=== PATIENT | male | born 1950 | race Caucasian/White ===

== ENCOUNTER 2018-03-16 12:02 | Outpatient (CLI) | payer MEDICARE, BC ==
--- NOTE | 2018-03-16 15:42 | MRI ---
MRI LEFT KNEE WITHOUT CONTRAST: INDICATIONS: Left lateral knee pain. COMPARISON: Left knee radiographs dated 11/08/2016. FINDINGS: The severe osteoarthrosis involving the left knee is stable. Intraarticular bodies and suprapatellar pouch are again seen. The largest is seen within the suprapatellar pouch on image 11 with its great est dimension measuring 2.8 cm. An additional is seen measuring 1.9 cm. There is one seen within th e medial gutter, measuring 1.2 cm. There is edema involving the medial femoral condyle and medial tibial plateau. There are prominent o steophytes affecting all major compartments. The ACL, PCL, MCL, and LCLC are intact. There is a complete radial tear involving the posterior root of the medial meniscus. There is degene rative fraying of the body and anterior horn of the medial meniscus. There is a horizontally oriente d tear involving the body and the posterior horn of the lateral meniscus. There is a small suspected radial component involving the anterior junction of the lateral meniscus. The extensor mechanism is intact. IMPRESSION: 1. Stable severe osteoarthrosis of the left knee with intraarticular bodies. 2. Medial and lateral meniscal tears. 3. Subchondral edema involving the medial femoral condyle and the medial tibial plateau, likely rela toni to areas of full thickness chondral thinning and reactive subchondral bone marrow edema. POS: [facility]
== END 2018-03-16 12:03 | disposition home or self-care (01) ==
LOC: SCSMRI 12:02
PROVIDERS: ATTEND Family Medicine
DX: S83.282A Other tear of lateral meniscus, current injury, left knee, initial encounter (principal); S83.242A Other tear of medial meniscus, current injury, left knee, initial encounter; M17.12 Unilateral primary osteoarthritis, left knee; R50.9 Fever, unspecified

== ENCOUNTER 2022-04-30 15:26 | Emergency (ER) | payer MEDICARE, BC ==
[2022-04-30 17:15] LABS: #Eosinphils 0.1 thou/uL (0.0-0.7); #Lymphocytes 2.1 thou/uL (1.20-3.40); #Monocytes 0.6 thou/uL (0.11-0.59); #Neutrophils 3.2 thou/uL (1.40-6.50); %Basophils 0.8 % (0.0-1.0); %Lymphocytes 34.2 % (21.0-51.0); Hemoglobin 15.2 g/dL (14.0-18.0); Mean Corpuscular HGB CONC 33.4 g/dL (32.0-36.0); Mean Corpuscular Hemoglobin 31.2 pg (27.0-31.0); Mean Corpuscular Volume 93.7 fL (78.0-98.0); Mean Platelet Volume 7.6 fL (7.4-10.4); Platelet Count 206 thou/uL (130-400); RBC Distribution Width 12.9 % (11.5-14.5); Red Blood Cell (RBC) Count 4.88 mill/uL (4.70-6.10); White Blood Cell (WBC) Count 6.1 thou/uL (4.8-10.8)
[2022-04-30 17:38] LABS: ALT (SGPT) 28 U/L (8-55); AST (SGOT) 27 U/L (5-34); Albumin 4.2 g/dL (3.4-4.8); Alkaline Phosphatase 50 U/L (40-110); Anion Gap 12 mmol/L (10-20); BUN (Urea Nitrogen) 19 mg/dL (8.4-25.7); Bilirubin, Total 1.2 mg/dL (0.2-1.2); Calc. Creatinine Clearance 0 mL/min (70-130); Calcium 9.7 mg/dL (7.8-10.44); Carbon Dioxide 26 mmol/L (23-31); Chloride 109 mmol/L (98-107); Estimated GFR 86; Globulin 2.6 g/dL (2.4-3.5); Glucose 88 mg/dL (83-110); Potassium 4.7 mmol/L (3.5-5.1); Protein, Total 6.8 g/dL (5.8-8.1); Sodium 142 mmol/L (136-145)
[2022-04-30 19:31] LABS: Bacteria/HPF None Seen HPF (None Seen); Bilirubin Negative (Negative); Blood, Urine Negative (Negative); Clarity Clear (Clear); Glucose, Urine (Dipstick) Normal (Negative); Ketone, Urine Negative (Negative); Leukocyte 25 Leu/uL (Negative); Nitrite Negative (Negative); Protein, Urine (Dipstick) Negative (Neg-Trace); RBC/HPF None Seen HPF (0-3); Specific Gravity, Urine 1.011 (1.002-1.036); Squamous Epithelial 0-3 HPF (0-3); Urobilinogen Normal mg/dL (Less than 2); WBC/HPF 0-3 HPF (0-3); pH, Urine 6.5 (5.0-9.0)
== END 2022-04-30 20:28 | disposition home or self-care (01) ==
LOC: ERS 15:26
DX: I82.411 Acute embolism and thrombosis of right femoral vein (principal); E11.9 Type 2 diabetes mellitus without complications; I10 Essential (primary) hypertension; Z79.899 Other long term (current) drug therapy; Z79.84 Long term (current) use of oral hypoglycemic drugs
CPT/HCPCS: 36415; 80053; 81003; 81015; 85025; 93970

== ENCOUNTER 2024-04-22 15:15 | Outpatient (CLI) | payer MEDICARE, BC | END 2024-04-22 15:16 | disposition home or self-care (01) | LOC: SCSRAD 15:15 | PROVIDERS: ATTEND Family Medicine | DX: Z01.818 Encounter for other preprocedural examination (principal) | CPT/HCPCS: 71046 ==

== ENCOUNTER 2024-06-29 06:13 | Observation (INO) | payer MEDICARE, BC ==
[2024-06-22 11:16] VITALS: BMI 37.5
[2024-06-29] MEDS ORDERED: Tranexamic Acid 1,000 MG/10 ML VIAL ONE (07:20)
[2024-06-29] MEDS ORDERED: Sodium Chloride 0.9% 100 ML ONE ×2 (07:21→09:48)
[2024-06-29] MEDS ORDERED: Bupivacaine PF 0.5% 30 ML VIAL ONE (07:49)
[2024-06-29] MEDS ORDERED: fentaNYL 50 mcg/mL 1 mL Vial ONE ×4 (07:49→11:26)
[2024-06-29] MEDS ORDERED: Midazolam HCl 2 mg/2 ml Vial ONE (07:49)
[2024-06-29] MEDS ORDERED: EPINEPHrine 1 MG/ML VIAL ONE (09:33)
[2024-06-29] MEDS ORDERED: Bupivacaine 0.25% HCL 30 ML VIAL ONE (09:33)
[2024-06-29] MEDS ORDERED: CEFAZOLIN 2 GM VIAL ONE (09:48)
[2024-06-29] MEDS ORDERED: fentaNYL 50 mcg/mL 1 mL Vial SLOW IVP PRN (09:51)
[2024-06-29] MEDS ORDERED: Lidocaine 1% PF 5 ML VIAL ONE (09:59)
[2024-06-29] MEDS ORDERED: PROPOFOL 20 ML ONE (09:59)
[2024-06-29] MEDS ORDERED: Ondansetron PF 4 MG/2 ML Vial ONE (09:59)
[2024-06-29] MEDS ORDERED: Ondansetron PF 4 MG/2 ML Vial IVP PRN ×2 (10:00→11:56)
[2024-06-29] MEDS ORDERED: traMADol HCl 50 MG TAB PO PRN (10:00)
[2024-06-29] MEDS ORDERED: Promethazine HCl 25 MG/ML VIAL IM PRN (10:00)
[2024-06-29] MEDS ORDERED: Ropivacaine 0.2% 550 ML 550 ML NERVE BLCK SCH (10:00)
[2024-06-29] MEDS ORDERED: HYDROcodone/Acetaminophen 10/325 mg Tablet PO PRN ×2 (10:00)
[2024-06-29] MEDS ORDERED: Zolpidem Tartrate 5 MG TAB PO PRN ×2 (10:00→11:56)
[2024-06-29] MEDS ORDERED: ePHEDrine Sulfate 50 MG/10 ML VIAL ONE (10:11)
[2024-06-29] MEDS ORDERED: Dexamethasone 4 mg/ml Vial ONE (11:41)
[2024-06-29] MEDS ORDERED: diphenhydrAMINE 25 MG CAP PO PRN (11:56)
[2024-06-29] MEDS ORDERED: Acetaminophen 325 MG TAB PO PRN (11:56)
[2024-06-29] MEDS ORDERED: HYDROmorphone 0.5 MG/0.5 ML SYRINGE ONE (12:10)
[2024-06-29] MEDS ORDERED: Fentanyl 250 MCG/5 ML VIAL ONE (12:10)
[2024-06-29] MEDS ORDERED: Ketorolac Tromethamine 30 MG (1 mL) VIAL ONE (12:47)
[2024-06-29] MEDS: Vancomycin (BATCH) 2 GM in Premix 1 BAG IVPB SCH (14:22)
[2024-06-29] MEDS: Ketorolac Tromethamine 30 MG (1 mL) VIAL IVP SCH (14:22)
[2024-06-29] MEDS: Magnesium 2 GM/50 ML(in water) 2 GM in Premix 1 BAG IVPB SCH (14:22)
[2024-06-29] MEDS: Sodium Chloride 0.9% 1,000 ML IV SCH (14:24)
[2024-06-29] MEDS: traMADol HCl 50 MG TAB PO PRN (15:12)
[2024-06-29] MEDS: Promethazine HCl 25 MG/ML VIAL IM PRN (15:15)
[2024-06-29 17:21] LABS: Anion Gap 13 mmol/L (10-20); BUN (Urea Nitrogen) 14 mg/dL (8.4-25.7); Calc. Creatinine Clearance 95 mL/min (70-130); Calcium 9.2 mg/dL (7.8-10.44); Carbon Dioxide 24 mmol/L (23-31); Chloride 109 mmol/L (98-107); Estimated GFR 65; Glucose 171 mg/dL (83-110); Potassium 4.5 mmol/L (3.5-5.1); Sodium 141 mmol/L (136-145)
[2024-06-29] MEDS: CEFAZOLIN 2 GM in Sodium Chloride 0.9% 100 ML IVPB SCH (17:43)
[2024-06-29] MEDS: metFORMIN 500 MG TAB PO SCH (22:36)
[2024-06-29] MEDS: glipiZIDE 5 MG TAB PO SCH (22:36)
[2024-06-30 06:48] LABS: #Basophils 0.03 10x3/uL (0.0-0.2); %Basophils 0.3 % (0.0-1.0); %Eosinophils 0.3 % (0.0-10.0); %Lymphocytes 17.7 % (21.0-51.0); %Monocytes 12.7 % (0.0-10.0); %Neutrophils 68.7 % (42.0-75.0); Hematocrit 36.8 % (42.0-52.0); Mean Corpuscular HGB CONC 32.6 g/dL (32.0-36.0); Mean Corpuscular Hemoglobin 29.9 pg (27.0-31.0); Mean Corpuscular Volume 91.8 fL (78.0-98.0); Platelet Count 193 10x3/uL (130-400); RBC Distribution Width 13.2 % (11.5-14.5); Red Blood Cell (RBC) Count 4.01 mill/uL (4.70-6.10)
[2024-06-30 06:49] LABS: Hemoglobin 11.7 g/dL (14.0-18.0); Mean Corpuscular HGB CONC 32.5 g/dL (32.0-36.0); Mean Corpuscular Hemoglobin 30.5 pg (27.0-31.0); Platelet Count 184 10x3/uL (130-400); RBC Distribution Width 13.2 % (11.5-14.5); Red Blood Cell (RBC) Count 3.83 mill/uL (4.70-6.10)
[2024-06-30 07:48] LABS: Anion Gap 12 mmol/L (10-20); BUN (Urea Nitrogen) 17 mg/dL (8.4-25.7); Calc. Creatinine Clearance 91 mL/min (70-130); Calcium 8.4 mg/dL (7.8-10.44); Carbon Dioxide 22 mmol/L (23-31); Chloride 109 mmol/L (98-107); Estimated GFR 62; Glucose 82 mg/dL (83-110); Potassium 4.2 mmol/L (3.5-5.1); Sodium 139 mmol/L (136-145)
[2024-06-30] MEDS: Senokot S 8.6-50 MG TAB PO SCH (08:25)
[2024-06-30] MEDS: Apixaban 5 MG TAB PO SCH (08:25)
[2024-06-30] MEDS: Multivitamin W/ Minerals 1 TAB PO SCH (08:26)
[2024-06-30] MEDS: Cholecalciferol 1,000 UNITS (25 MCG) TAB PO SCH (08:26)
[2024-06-30] MEDS: Tamsulosin HCl 0.4 MG CAP PO SCH (08:27)
[2024-06-30] MEDS: Cyanocobalamin (Vitamin B-12) 1,000 MCG TAB PO SCH (08:27)
[2024-06-30] MEDS: pyridOXINE 50 MG (B6) TAB PO SCH (08:28)
[2024-06-30] MEDS: Ferrous Gluconate 324 MG TAB PO SCH (08:28)
[2024-06-30] MEDS: Ezetimibe 10 MG TAB PO SCH (08:28)
[2024-06-30] MEDS: Lisinopril 5 MG TAB PO SCH (08:30)
[2024-06-30] MEDS ORDERED: Dextrose 5% in Water 1,000 ML IV PRN (08:44)
[2024-06-30] MEDS ORDERED: Dextrose 50% Abboject 50 ML SYRINGE SLOW IVP PRN (08:44)
[2024-06-30] MEDS ORDERED: Insulin Lispro 100 UNIT/ML 10 ML VIAL SC PRN (08:44)
[2024-06-30] MEDS ORDERED: Glucagon 1 MG/ML KIT IM PRN (08:44)
[2024-06-30] MEDS: MAGNESIUM CITRATE 100 MG TABLET PO SCH (18:09)
[2024-06-30] MEDS: POTASSIUM CITRATE 99 MG PO SCH (18:09)
[2024-07-01 05:07] LABS: Hematocrit 35.7 % (42.0-52.0); Mean Corpuscular HGB CONC 33.6 g/dL (32.0-36.0); Mean Corpuscular Hemoglobin 30.2 pg (27.0-31.0); Mean Corpuscular Volume 89.7 fL (78.0-98.0); Mean Platelet Volume 10.1 fL (7.4-10.4); Platelet Count 166 10x3/uL (130-400); RBC Distribution Width 13.2 % (11.5-14.5); Red Blood Cell (RBC) Count 3.98 mill/uL (4.70-6.10)
[2024-07-01 11:42] VITALS: BP 146/77; TEMP 98
== END 2024-07-01 13:55 | disposition home or self-care (01) ==
LOC: SDC 06:13 → SURG B 14:16 → INTOOBSV 14:16
PROVIDERS: ADMIT Orthopaedic Surgery; ATTEND Orthopaedic Surgery
PROC: 0SRD06Z Replacement of Left Knee Joint with Oxidized Zirconium on Polyethylene Synthetic Substitute, Open Approach (ICD-10-PCS; principal; 2024-06-29)
PROC: 3E0T3BZ Introduction of Anesthetic Agent into Peripheral Nerves and Plexi, Percutaneous Approach (ICD-10-PCS; 2024-06-29)
DX: M17.12 Unilateral primary osteoarthritis, left knee (principal); E11.9 Type 2 diabetes mellitus without complications; E78.5 Hyperlipidemia, unspecified; N40.0 Benign prostatic hyperplasia without lower urinary tract symptoms; M25.762 Osteophyte, left knee; E66.01 Morbid (severe) obesity due to excess calories; I11.9 Hypertensive heart disease without heart failure; I82.501 Chronic embolism and thrombosis of unspecified deep veins of right lower extremity; Z98.890 Other specified postprocedural states; Z79.899 Other long term (current) drug therapy; Z79.84 Long term (current) use of oral hypoglycemic drugs; Z86.718 Personal history of other venous thrombosis and embolism
CPT/HCPCS: 27447; 64448; 71045; 73560; 80048 ×2; 82962 ×3; 85025; 85027 ×2; 97110 ×3; 97116 ×2; 97530; 97535; A4306; C1713; C1776; C1889; J0171; J0665 ×2; J1100; J1170; J1885 ×3; J2405; J2550; J2704; J2795; J3010 ×2; J3370; J3475; J7030; 36415; 36416; J2250

== ENCOUNTER 2024-10-18 11:02 | Outpatient (CLI) | payer MEDICARE, BC | END 2024-10-18 11:03 | disposition home or self-care (01) | LOC: RAD 11:02 | PROVIDERS: ATTEND Physician Assistant | DX: M25.532 Pain in left wrist (principal); M18.12 Unilateral primary osteoarthritis of first carpometacarpal joint, left hand; M19.032 Primary osteoarthritis, left wrist ==